=== PATIENT | male | born 1995 | race Caucasian/White ===

== ENCOUNTER → 2024-05-23 06:49 | Outpatient (CLI) | payer OTHER, SELFPAY ==
[2024-05-23 08:20] LABS: Lithium 0.4 mmol/L (0.6-1.2)
[2024-05-23 08:27] LABS: BUN Creatinine Ratio 17.9 (6-22); Blood Urea Nitrogen 15 mg/dL (9-20); Calcium 9.7 mg/dL (8.4-10.2); Carbon Dioxide 26 mmol/L (22-32); Chloride 108 mmol/L (98-107); Estimated Glomerular Filt Rate > 60 mL/min (>60); Glucose 92 mg/dL (70-100); HEMOLYSIS < 15 (0-50); Potassium 4.2 mmol/L (3.4-5.1); Sodium 141 mmol/L (137-145)
[2024-05-23 08:55] LABS: TSH w/ Reflex to FT4 4.19 uIU/mL (0.47-4.68)
== END ==
LOC: LAB 06:54
PROVIDERS: PCP Family Medicine
DX: F34.0 Cyclothymic disorder (principal)
CPT/HCPCS: 36415; 80048; 80178; 84443

== ENCOUNTER → 2024-06-26 07:04 | Outpatient (CLI) | payer OTHER, SELFPAY ==
[2024-06-26 09:23] LABS: Lithium 0.8 mmol/L (0.6-1.2)
[2024-06-27 23:36] LABS: Valproic Acid (Depakene) Total 35 ug/mL (50-100)
== END ==
PROVIDERS: PCP Family Medicine; Referring Provider Psychiatry & Neurology Psychiatry; Visit Provider Psychiatry & Neurology Psychiatry
DX: F34.0 Cyclothymic disorder (principal); F31.9 Bipolar disorder, unspecified
CPT/HCPCS: 36415; 80164; 80178

== ENCOUNTER → 2024-08-03 16:44 | Outpatient (CLI) | payer OTHER, SELFPAY ==
[2024-08-03 17:39] LABS: Lithium 1.4 mmol/L (0.6-1.2)
[2024-08-05 00:38] LABS: Valproic Acid (Depakene) Total 21 ug/mL (50-100)
== END ==
LOC: LAB 16:46
PROVIDERS: PCP Family Medicine; Referring Provider Psychiatry & Neurology Psychiatry; Visit Provider Psychiatry & Neurology Psychiatry
DX: F42.2 Mixed obsessional thoughts and acts (principal); F31.9 Bipolar disorder, unspecified; F41.1 Generalized anxiety disorder
CPT/HCPCS: 36415; 80164; 80178

== ENCOUNTER → 2024-09-02 07:47 | Outpatient (CLI) | payer OTHER, SELFPAY ==
[2024-09-02 09:51] LABS: Lithium 0.8 mmol/L (0.6-1.2)
== END ==
PROVIDERS: PCP Family Medicine; Referring Provider Psychiatry & Neurology Psychiatry; Visit Provider Psychiatry & Neurology Psychiatry
DX: F31.9 Bipolar disorder, unspecified (principal)
CPT/HCPCS: 36415; 80178

== ENCOUNTER → 2024-12-09 07:42 | Outpatient (CLI) | payer OTHER, SELFPAY ==
[2024-12-09 09:31] LABS: Lithium 0.9 mmol/L (0.6-1.2)
== END ==
PROVIDERS: PCP Family Medicine; Referring Provider Psychiatry & Neurology Psychiatry; Visit Provider Psychiatry & Neurology Psychiatry
DX: F31.9 Bipolar disorder, unspecified (principal)
CPT/HCPCS: 36415; 80178